=== PATIENT | female | born 1960 | race Caucasian/White ===

== ENCOUNTER 2016-07-10 18:24 | Inpatient (IN) | payer MEDICARE, MEDICAID ==
[~2016-07-10] VITALS: Ht 154.9 cm; Wt 79.7 kg
[2016-07-10] MEDS ORDERED: MAGNEVIST 15ML IV ONE (19:50)
[2016-07-10] MEDS ORDERED: ONDANSETRON 4 MG VIAL IV PRN (22:40)
[2016-07-10] MEDS ORDERED: LORAZEPAM 0.5 MG TAB PO PRN (22:40)
[2016-07-10] MEDS ORDERED: DOCUSATE SOD 100 MG CAP PO PRN (22:40)
[2016-07-10] MEDS ORDERED: NITROGLYCERIN 50 MG/250 ML IV PRN (22:40)
[2016-07-10] MEDS ORDERED: SALINE FLUSH 10 ML FLUSH PRN (22:40)
[2016-07-10] MEDS ORDERED: TRAMADOL 50 MG TAB PO PRN (22:40)
[2016-07-10] MEDS ORDERED: SODIUM CHLORIDE 0.9% 1,000 ML IV SCH (22:40)
[2016-07-10] MEDS ORDERED: SODIUM CHLORIDE 0.9% FLUSH BAG 500 ML IV PRN (22:40)
[2016-07-10] MEDS ORDERED: NITROGLYCERIN SL 0.4 MG TAB SL PRN (22:40)
[2016-07-10] MEDS ORDERED: ASPIRIN 81 MG CHEW TAB PO ONE (22:40)
[2016-07-10] MEDS ORDERED: ACETAMINOPHEN 325 MG TAB PO PRN (22:40)
[2016-07-10 23:58] VITALS: BP_SYST 129; BP_SYST 159; RESP 18; TEMP 98.2
[2016-07-11] VITALS (8 sets, daily range): BP systolic 126–170; RESP 18–20; TEMP 97.7–99.1; Ht 154.9 cm; Wt 79.7 kg
[2016-07-11] MEDS: TEMAZEPAM 15 MG CAP PO PRN (00:33)
[2016-07-11] MEDS: FENTANYL 25 MCG/24 HR PATCH TRANSDERM SCH (06:31)
[2016-07-11] MEDS: OXYCODONE 5 MG TAB PO PRN ×3 (06:32→21:59)
[2016-07-11] MEDS: PANTOPRAZOLE 40 MG TAB PO SCH (06:32)
[2016-07-11] MEDS ORDERED: ASPIRIN EC 81 MG TAB PO SCH (08:00)
[2016-07-11] MEDS: SALINE FLUSH 10 ML FLUSH SCH ×2 (08:58→20:19)
[2016-07-11] MEDS: DICLOFENAC 75 MG TAB PO SCH ×2 (08:59→20:18)
[2016-07-11] MEDS: DULoxetine 30 MG CAP PO SCH (08:59)
[2016-07-11] MEDS: LISINOPRIL 10 MG TAB PO SCH (08:59)
[2016-07-11] MEDS: METOPROLOL XL 100 MG TAB PO SCH (08:59)
[2016-07-11] MEDS: BUSPIRONE HCL 15 MG TAB PO SCH ×3 (08:59→20:19)
[2016-07-11] MEDS: GABAPENTIN 400 MG CAP PO SCH ×4 (08:59→20:18)
[2016-07-11] MEDS ORDERED: CYCLOBENZAPRINE 10 MG TAB PO SCH (09:00)
[2016-07-11] MEDS ORDERED: Atorvastatin 20 MG TAB PO SCH ×2 (12:05→21:00)
[2016-07-11] MEDS: ASPIRIN EC 81 MG TAB PO SCH (12:36)
[2016-07-11] MEDS: ENOXAPARIN 40 MG/0.4 ML SYR SUBQ SCH (12:37)
[2016-07-11] MEDS: CYCLOBENZAPRINE 10 MG TAB PO SCH (20:19)
[2016-07-11] MEDS ORDERED: LEVEMIR INSULIN SUBQ SCH (21:00)
[2016-07-11] MEDS: CLOPIDOGREL 75 MG TAB PO SCH (22:04)
[2016-07-11] MEDS: VARENICLINE 0.5 MG TAB PO SCH (22:04)
[2016-07-11] MEDS: Atorvastatin 40 MG TAB PO SCH (22:05)
[2016-07-12] VITALS (12 sets, daily range): BP systolic 106–182; RESP 7–25; TEMP 97.4–98.3
[2016-07-12] MEDS: PANTOPRAZOLE 40 MG TAB PO SCH (06:07)
[2016-07-12] MEDS: OXYCODONE 5 MG TAB PO PRN ×3 (06:13→20:44)
[2016-07-12] MEDS: ENOXAPARIN 40 MG/0.4 ML SYR SUBQ SCH (08:34)
[2016-07-12] MEDS: SALINE FLUSH 10 ML FLUSH SCH ×2 (08:34→20:44)
[2016-07-12] MEDS: BUSPIRONE HCL 15 MG TAB PO SCH ×3 (08:35→20:43)
[2016-07-12] MEDS: ASPIRIN EC 81 MG TAB PO SCH (08:35)
[2016-07-12] MEDS: METOPROLOL XL 100 MG TAB PO SCH (08:35)
[2016-07-12] MEDS: VARENICLINE 0.5 MG TAB PO SCH ×2 (08:35→20:43)
[2016-07-12] MEDS: CLOPIDOGREL 75 MG TAB PO SCH (08:35)
[2016-07-12] MEDS: DICLOFENAC 75 MG TAB PO SCH ×2 (08:35→20:43)
[2016-07-12] MEDS: LISINOPRIL 10 MG TAB PO SCH (08:35)
[2016-07-12] MEDS: GABAPENTIN 400 MG CAP PO SCH ×4 (08:36→20:44)
[2016-07-12] MEDS: DULoxetine 30 MG CAP PO SCH (08:36)
[2016-07-12] MEDS: Atorvastatin 40 MG TAB PO SCH (20:43)
[2016-07-12] MEDS: LEVEMIR INSULIN SUBQ SCH (20:43)
[2016-07-12] MEDS: CYCLOBENZAPRINE 10 MG TAB PO SCH (20:44)
[2016-07-12] MEDS: SODIUM CHLORIDE 0.9% 1,000 ML IV SCH (22:50)
[2016-07-12] MEDS ORDERED: hePARIN 20,000 UNITS in DEXTROSE 5% 500 ML IV SCH (22:55)
[2016-07-12] MEDS: MORPHINE 2 MG/ML SYR IV PRN (23:34)
[2016-07-12] MEDS: hePARIN in D5W (40 UNITS/ML) 500 ML IV SCH (23:54)
[2016-07-13] VITALS (28 sets, daily range): BP systolic 110–169; RESP 8–19; TEMP 97.3–98.2
[2016-07-13] MEDS: MORPHINE 2 MG/ML SYR IV PRN (03:04)
[2016-07-13] MEDS: SALINE FLUSH 10 ML FLUSH SCH ×2 (08:00→20:00)
[2016-07-13] MEDS: OXYCODONE 5 MG TAB PO PRN ×2 (09:03→18:23)
[2016-07-13] MEDS: DICLOFENAC 75 MG TAB PO SCH ×2 (09:07→20:59)
[2016-07-13] MEDS: METOPROLOL XL 100 MG TAB PO SCH (09:07)
[2016-07-13] MEDS: VARENICLINE 0.5 MG TAB PO SCH ×2 (09:07→20:57)
[2016-07-13] MEDS: CLOPIDOGREL 75 MG TAB PO SCH (09:07)
[2016-07-13] MEDS: PANTOPRAZOLE 40 MG TAB PO SCH (09:07)
[2016-07-13] MEDS: LISINOPRIL 10 MG TAB PO SCH (09:07)
[2016-07-13] MEDS: BUSPIRONE HCL 15 MG TAB PO SCH ×3 (09:08→20:59)
[2016-07-13] MEDS: DULoxetine 30 MG CAP PO SCH (09:08)
[2016-07-13] MEDS: ASPIRIN EC 81 MG TAB PO SCH (09:08)
[2016-07-13] MEDS: GABAPENTIN 400 MG CAP PO SCH ×4 (09:08→20:59)
[2016-07-13] MEDS: SODIUM CHLORIDE 0.9% 1,000 ML IV SCH (12:04)
[2016-07-13] MEDS ORDERED: MISSING DOSE XX ONE (12:05)
[2016-07-13] MEDS: hePARIN in D5W (40 UNITS/ML) 500 ML IV SCH (13:16)
[2016-07-13] MEDS: CYCLOBENZAPRINE 10 MG TAB PO SCH (20:59)
[2016-07-13] MEDS: TEMAZEPAM 15 MG CAP PO PRN (20:59)
[2016-07-13] MEDS: Atorvastatin 40 MG TAB PO SCH (21:05)
[2016-07-13] MEDS: LEVEMIR INSULIN SUBQ SCH (21:06)
[2016-07-14] VITALS (24 sets, daily range): BP systolic 100–171; RESP 9–25; TEMP 97.2–98.2
[2016-07-14] MEDS ORDERED: MISSING DOSE XX ONE (02:30)
[2016-07-14] MEDS: hePARIN in D5W (40 UNITS/ML) 500 ML IV SCH (03:10)
[2016-07-14] MEDS: FENTANYL 25 MCG/24 HR PATCH TRANSDERM SCH (06:22)
[2016-07-14] MEDS: PANTOPRAZOLE 40 MG TAB PO SCH (07:00)
[2016-07-14] MEDS: SALINE FLUSH 10 ML FLUSH SCH ×2 (07:48→20:53)
[2016-07-14] MEDS: ASPIRIN EC 81 MG TAB PO SCH (08:00)
[2016-07-14] MEDS: MORPHINE 2 MG/ML SYR IV PRN (08:35)
[2016-07-14] MEDS: VARENICLINE 0.5 MG TAB PO SCH ×2 (09:00→20:53)
[2016-07-14] MEDS: LISINOPRIL 10 MG TAB PO SCH (09:00)
[2016-07-14] MEDS: BUSPIRONE HCL 15 MG TAB PO SCH ×3 (09:00→20:53)
[2016-07-14] MEDS: DICLOFENAC 75 MG TAB PO SCH ×2 (09:00→20:53)
[2016-07-14] MEDS: CLOPIDOGREL 75 MG TAB PO SCH (09:00)
[2016-07-14] MEDS: METOPROLOL XL 100 MG TAB PO SCH (09:00)
[2016-07-14] MEDS: DULoxetine 30 MG CAP PO SCH (09:00)
[2016-07-14] MEDS: GABAPENTIN 400 MG CAP PO SCH ×4 (09:00→20:52)
[2016-07-14] MEDS ORDERED: MEPERIDINE 25 MG/ML ONE (16:55)
[2016-07-14] MEDS ORDERED: MIDAZOLAM 2 MG/2 ML INJ ONE (16:55)
[2016-07-14] MEDS: OXYCODONE 5 MG TAB PO PRN (18:10)
[2016-07-14] MEDS: CYCLOBENZAPRINE 10 MG TAB PO SCH (20:52)
[2016-07-14] MEDS: Atorvastatin 40 MG TAB PO SCH (20:52)
[2016-07-14] MEDS: LEVEMIR INSULIN SUBQ SCH (21:14)
[2016-07-14] MEDS: SODIUM CHLORIDE 0.9% 1,000 ML IV SCH (21:15)
[2016-07-15] VITALS (19 sets, daily range): BP systolic 101–178; RESP 5–18; TEMP 97.4–98.6
[2016-07-15] MEDS: OXYCODONE 5 MG TAB PO PRN ×4 (00:07→21:09)
[2016-07-15] MEDS ORDERED: MISSING DOSE XX ONE (03:20)
[2016-07-15] MEDS: hePARIN in D5W (40 UNITS/ML) 500 ML IV SCH (05:03)
[2016-07-15] MEDS: LISINOPRIL 10 MG TAB PO SCH (05:08)
[2016-07-15] MEDS: PANTOPRAZOLE 40 MG TAB PO SCH (06:42)
[2016-07-15] MEDS: SALINE FLUSH 10 ML FLUSH SCH ×2 (08:40→20:57)
[2016-07-15] MEDS: METOPROLOL XL 100 MG TAB PO SCH (08:41)
[2016-07-15] MEDS: VARENICLINE 0.5 MG TAB PO SCH ×2 (08:42→21:00)
[2016-07-15] MEDS: BUSPIRONE HCL 15 MG TAB PO SCH ×3 (08:42→21:01)
[2016-07-15] MEDS: DICLOFENAC 75 MG TAB PO SCH ×2 (08:42→21:00)
[2016-07-15] MEDS: DULoxetine 30 MG CAP PO SCH (08:42)
[2016-07-15] MEDS: CLOPIDOGREL 75 MG TAB PO SCH (08:42)
[2016-07-15] MEDS: ASPIRIN EC 81 MG TAB PO SCH (08:43)
[2016-07-15] MEDS: GABAPENTIN 400 MG CAP PO SCH ×4 (08:43→21:00)
[2016-07-15] MEDS: LEVEMIR INSULIN SUBQ SCH (21:00)
[2016-07-15] MEDS: Atorvastatin 40 MG TAB PO SCH (21:01)
[2016-07-15] MEDS: CYCLOBENZAPRINE 10 MG TAB PO SCH (21:01)
[2016-07-16 02:57] VITALS: BP_SYST 109; RESP 16; TEMP 97.5
[2016-07-16] MEDS: OXYCODONE 5 MG TAB PO PRN (06:07)
[2016-07-16] MEDS: PANTOPRAZOLE 40 MG TAB PO SCH (06:09)
[2016-07-16 08:15] VITALS: BP_SYST 108; RESP 16; TEMP 97.6
[2016-07-16 10:35] VITALS: BP_SYST 108; RESP 16; TEMP 97.6
[2016-07-16] MEDS: SALINE FLUSH 10 ML FLUSH SCH (11:06)
[2016-07-16] MEDS: GABAPENTIN 400 MG CAP PO SCH (11:08)
[2016-07-16] MEDS: DULoxetine 30 MG CAP PO SCH (11:08)
[2016-07-16] MEDS: DICLOFENAC 75 MG TAB PO SCH (11:08)
[2016-07-16] MEDS: VARENICLINE 0.5 MG TAB PO SCH (11:08)
[2016-07-16] MEDS: BUSPIRONE HCL 15 MG TAB PO SCH (11:09)
[2016-07-16] MEDS: CLOPIDOGREL 75 MG TAB PO SCH (11:09)
[2016-07-16] MEDS: METOPROLOL XL 100 MG TAB PO SCH (11:09)
[2016-07-16] MEDS: ASPIRIN EC 81 MG TAB PO SCH (11:09)
[2016-07-16] MEDS: LISINOPRIL 10 MG TAB PO SCH (11:09)
== END 2016-07-16 11:22 | disposition home or self-care (01) | DRG 65 ==
LOC: ENRESERVDT → ENRESERV → ENRESERVTM → ER 18:24 → EMR 19:49 → PCU 22:32 → OBSVTOIN 07-11 12:06 → ENPENDDIS 07-11 12:06 → CCU 07-12 22:18 → PCU 07-15 14:00
PROVIDERS: ADMIT Internal Medicine; ATTEND Internal Medicine
DX: I63.9 Cerebral infarction, unspecified (principal); G81.94 Hemiplegia, unspecified affecting left nondominant side; E11.65 Type 2 diabetes mellitus with hyperglycemia; I10 Essential (primary) hypertension; Z79.4 Long term (current) use of insulin; Z79.84 Long term (current) use of oral hypoglycemic drugs; E78.5 Hyperlipidemia, unspecified; I25.10 Atherosclerotic heart disease of native coronary artery without angina pectoris; Z95.1 Presence of aortocoronary bypass graft; M51.36 Other intervertebral disc degeneration, lumbar region; F41.9 Anxiety disorder, unspecified; F32.9 Major depressive disorder, single episode, unspecified; F17.210 Nicotine dependence, cigarettes, uncomplicated; R07.9 Chest pain, unspecified; Z79.82 Long term (current) use of aspirin; Z86.73 Personal history of transient ischemic attack (TIA), and cerebral infarction without residual deficits
CPT/HCPCS: 36415; 36600; 70450; 70544; 70551; 70553; 71010; 80053; 80061; 82550; 82553; 82803; 82947; 83735; 84484; 85025; 85610; 85730; 93005; 93312; 93880; 94799